=== PATIENT | male | born 1985 | race Two or more races ===

== ENCOUNTER 2024-07-17 18:59 | Emergency (ER) | payer MEDICAID, OTHER ==
[~2024-07-17] VITALS: Ht 172.7 cm; Wt 97.7 kg
--- NOTE | 2024-07-17 19:22 | ED.PDOC ---
Back pain HPI HPI Comments 38-year-old male presents to the ED chief complaint lower back pain x1 week. Patient reports about 1 week ago he was bending over lifting up cooler and had sudden onset of right lower back pain. Describes pain as sharp shooting pain to right lower back shooting down right leg rates it 8/10 on pain scale. Patient states follow up at urgent care was given a muscle relaxer and anti-inflammatory however no improvement. Patient does deny numbness, weakness, loss of bowel or bladder control or saddle anesthesia. 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 Information Source: Patient Past Medical History PAST MEDICAL HISTORY: Denies Surgical History: Denies all surgeries Family History Family History: Reviewed,noncontributory to illness Social History Smoker: Non-Smoker Alcohol: Denies ETOH Use Drugs: Denies Drug Use Constitutional: denies: chills, diaphoresis, fatigue, fever, malaise, sweats, weakness, others EENTM: denies: blurred vision, double vision, ear bleeding, ear discharge, ear drainage, ear pain, ear ringing, eye pain, eye redness, hearing loss, mouth pain, mouth swelling, nasal discharge, nose bleeding, nose congestion, nose pain, photophobia, tearing, throat pain, throat swelling, voice changes, others Respiratory: denies: cough, hemoptysis, orthopnea, SOB at rest, shortness of breath, SOB with excertion, stridor, wheezing, others Cardiovascular: denies: chest pain, dizzy spells, diaphoresis, Dyspnea on exertion, edema, irregular heart beat, left arm pain, lightheadedness, palpitations, PND, syncope, others Gastrointestinal: denies: abdomen distended, abdominal pain, blood streaked bowels, constipated, diarrhea, dysphagia, difficulty swallowing, hematemesis, melena, nausea, poor appetite, poor fluid intake, rectal bleeding, rectal pain, vomiting, others Genitourinary: denies: burning, dysuria, flank pain, frequency, hematuria, incontinence, penile discharge, penile sore, pain, testicle pain, testicle swelling, urgency, others Neurological: denies: dizziness, fainting, headache, left sided numbness, left sided weakness, numbness, paresthesia, pre-existing deficit, right sided numbness, right sided weakness, seizure, speech problems, tingling, tremors, weakness, others Musculoskeletal: reports: back pain; denies: gout, joint pain, joint swelling, muscle pain, muscle stiffness, neck pain, others Integumetry: denies: bruises, change in color, change in hair/nails, dryness, laceration, lesions, lumps, rash, wounds, others Allergic/Immunocompromised: denies: Difficulty Healing, Frequent Infections, Hives, Itching, others Hematologic/Lymphatic: denies: anemia, blood clots, easy bleeding, easy bruising, swollen glands, others Endocrine: denies: excessive hunger, excessive sweating, excessive thirst, excessive urination, flushing, intolerance to cold, intolerance to heat, unexplained weight gain, unexplained weight loss, others Psychiatric: denies: anxiety, bipolar disorder, depression, hopeless, panic disorder, schizophrenia, sleepless, suicidal, others Physical Exam General Appearance: No Apparent Distress, Normal HEENT: Pharynx Normal Neck: Full Range of Motion, Non-Tender Respiratory: Lungs Clear, No Respiratory Distress, Normal Breath Sounds Cardiovascular: No JVD, No Murmur, Normal Peripheral Pulses, Regular Rate/Rhythm Breast Exam: Deferred Gastrointestinal: No Organomegaly, Non Tender, No Pulsatile Mass, Normal Bowel Sounds, Soft Genitalia: Deferred Pelvic: Deferred Rectal: Deferred Extremities: Normal capillary refill, Normal inspection, Normal range of motion, Non-tender, No pedal edema Musculoskeletal : Apperance: Normal Neurologic: Alert, line supervisor II-XII nml as Tested, No Motor Deficits, Normal Affect, Normal Mood, No Sensory Deficits Cerebellar Function: Normal Reflexes: Normal Skin: Dry, Normal Color, Warm Lymphatic: No Adenopathy Was a procedure done? Was a procedure done?: No Back Pain Differential Dx Differential Diagnosis: Fracture, Musculoskeletal Pain X-Ray, Labs, Meds, VS Vital Signs Date Time Temp Pulse Resp B/P (MAP) Pulse Ox O2 Delivery O2 Flow Rate FiO2 07/17/24 19:32 98.0 88 17 143/98 (113 97 98.0 Current Medications Medications (Trade) Dose Ordered Sig/Issa Route Start Time Stop Time Status Last Admin Ketorolac Tromethamine (Toradol Injection) 60 mg ONCE ONCE IM 07/17/24 20:15 07/17/24 20:16 DC 07/17/24 20:58 Dexamethasone Sodium Phosphate (Decadron Injection) 10 mg ONCE ONCE IM 07/17/24 20:15 07/17/24 20:16 DC 07/17/24 20:57 X-Ray, Labs, Meds, VS Comment Bar spine x-ray shows no acute fractures osseous lesions or subluxations. Likely lumbar muscle strain. Patient given Toradol 60 mg IM and Decadron 10 mg IM reports improvement in pain and function requesting discharge at this time. We will script trial of Medrol Dosepak advised to continue the muscle relaxer as prescribed. Advised to take medications as prescribed side effects discussed. Advised to follow up with his PCP in 2-3 days if no improvement consider further imaging such as MRI or referral to physical therapy. ER return precautions given for saddle anesthesia, loss of bowel bladder function, or numbness and weakness. Patient indicates understanding and agrees with discharge plan of care. Time of 1ST Reevaluation: 19:30 Reevaluation 1ST: Unchanged Time of 2ND Reevaluation: 21:03 Reevaluation 2ND: Improved Patient Education/Counseling: Diagnosis, Treatment, Prognosis, Need For Follow Up Family Education/Counseling: No Family Present Departure 1 Departure Time of Disposition: 20:59 Impression: Primary Impression: Lumbar sprain Qualified Codes: S33.5XXA - Sprain of ligaments of lumbar spine, initial encounter Additional Impression: Musculoskeletal pain Disposition: HOME / SELF CARE / HOMELESS Condition: Stable e-Prescriptions Methylprednisolone (Medrol Dosepak) 4 Mg Josue 4 MG PO UD for 6 Days, #21 TAB UAD Prov: JIMMY VENTURA 07/17/24 Discharged With: Self Critical Care Note Critical Care Time?: No Stability Stability form required: JIMMY Ro Jul 17, 2024 19:22
[2024-07-17 19:32] VITALS: TEMP 98
--- NOTE | 2024-07-17 20:36 | DVH ---
CLINICAL INDICATION: right lower back pain with radiculopathy right side TECHNIQUE: 3 radiographic views of the lumbar spine were obtained. Comparison: None FINDINGS/IMPRESSION: There is no evidence of acute fracture or dislocation. The visualized joint space is well maintained. The alignment is anatomical. There is no radiopaque foreign body.
[2024-07-17] MEDS: DexAMETHasone SOD PHOS 10MG/1ML VIAL INJ IM ONE (20:57)
[2024-07-17] MEDS: KETOROLAC TROMETH 60MG/2ML VIAL IM ONE (20:58)
[2024-07-17] MEDS ORDERED: METH4PAK PO (21:01)
[2024-07-17 21:04] VITALS: BP 150/83; PULSE 77; RESP 16; O2SAT 97
== END 2024-07-17 21:05 | disposition home or self-care (01) ==
LOC: ER 19:10
DX: S33.5XXA Sprain of ligaments of lumbar spine, initial encounter (principal); M79.18 Myalgia, other site; Z79.899 Other long term (current) drug therapy; X50.1XXA Overexertion from prolonged static or awkward postures, initial encounter; Y93.89 Activity, other specified; Y92.89 Other specified places as the place of occurrence of the external cause; Y99.0 Civilian activity done for income or pay
CPT/HCPCS: 72100; 96372; 99284; J1100; J1885